=== PATIENT | female | born 1995 | race African-American/Black ===

== ENCOUNTER 2020-02-09 19:48 | Emergency (ER) | payer OTHER ==
[2020-02-09] MEDS ORDERED: SODIUM CHLORIDE 1,000 ML IV ONE (20:15)
[2020-02-09 20:31] VITALS: BP 100/64; PULSE 90; TEMP 99; BMI 21.9
== END 2020-02-09 20:25 | disposition left against medical advice (07) ==
LOC: FER 19:48
DX: R10.9 Unspecified abdominal pain (principal)
CPT/HCPCS: 99281-25

== ENCOUNTER 2022-12-25 17:24 | Emergency (ER) | payer OTHER ==
[2022-12-25 17:30] VITALS: BP 108/79; PULSE 61; RESP 18; TEMP 97.8; BMI 31.6
[2022-12-25] MEDS ORDERED: FAMOTIDINE 20 MG/50 ML IVPB 20 MG/50 ML MG IVPB ONE ×2 (17:55→18:10)
[2022-12-25] MEDS ORDERED: ONDANSETRON 4 MG/2 ML VIAL IVPUSH ONE (17:55)
[2022-12-25] MEDS ORDERED: SODIUM CHLORIDE 0.9% 500 ML INFUS.BAG IV ONE (17:55)
[2022-12-25] MEDS ORDERED: ONDANSETRON 4 MG/2 ML VIAL ONE (18:10)
[2022-12-25 18:39] LABS: BASO % 0.3 % (0-2.0); EOS % 0.5 % (0-4.5); HEMATOCRIT 43.1 % (32.4-45.2); HEMOGLOBIN 14.2 GM/dL (10.7-15.3); MCH 28.2 pg (25.7-33.7); MEAN CELL VOLUME 85.5 fl (80-96); MEAN PLT VOLUME 10.7 fl (7.5-11.1); MONO % 2.8 % (3.8-10.2); NEUT % 85.4 % (42.8-82.8); PLATELET COUNT 217 10^3/uL (134-434); RBC 5.04 M/mm3 (3.60-5.2); RDW 15.1 % (11.6-15.6); WHITE BLOOD COUNT 11.3 K/mm3 (4.0-10.0)
[2022-12-25 18:49] LABS: POTASSIUM 4.1 mmol/L (3.5-5.1)
[2022-12-25 18:52] LABS: BLOOD UREA NITROGEN 9.1 mg/dL (7-18); CALCIUM 8.9 mg/dL (8.5-10.1)
[2022-12-25 18:55] LABS: CREATININE 0.7 mg/dL (0.55-1.3)
[2022-12-25 18:57] LABS: BILIRUBIN,TOTAL 0.3 mg/dL (0.2-1); TOT PROT 7.8 g/dl (6.4-8.2)
[2022-12-25 20:59] LABS: PH,URINE 7.5 (5.0-8.0); URINE APPEARANCE CLOUDY; URINE BILIRUBIN NEGATIVE (NEGATIVE); URINE COLOR YELLOW; URINE GLUCOSE (UA) NEGATIVE (NEGATIVE); URINE KETONE NEGATIVE (NEGATIVE); URINE LEUK ESTERASE NEGATIVE (NEGATIVE); URINE NITRITE NEGATIVE (NEGATIVE); URINE PROTEIN NEGATIVE (NEGATIVE); URINE UROBILINOGEN 0.2 mg/dL (0.2-1.0)
== END 2022-12-25 22:16 | disposition home or self-care (01) ==
LOC: JER 17:24
PROC: 3E033GC Introduction of Other Therapeutic Substance into Peripheral Vein, Percutaneous Approach (ICD-10-PCS; principal; 2022-12-25)
PROC: 3E033GC Introduction of Other Therapeutic Substance into Peripheral Vein, Percutaneous Approach (ICD-10-PCS; 2022-12-25)
DX: R11.2 Nausea with vomiting, unspecified (principal); K52.9 Noninfective gastroenteritis and colitis, unspecified
CPT/HCPCS: 36415; 74177-TC; 80053; 81003; 83690; 84703; 85025; 99285-25